=== PATIENT | male | born 1945 | race Caucasian/White ===

== ENCOUNTER 2019-12-30 08:35 | Day surgery (SDC) | payer MEDICARE, SELFPAY ==
[2019-12-25 13:58] VITALS: BMI 25.1
--- NOTE | 2019-12-26 12:40 | MHC.SHP ---
Pre-Procedural Eval Section A The patient is an INPATIENT: No The History & Physical has been completed within 30 days and I have reviewed it.: Yes Section B Chief Complaint: Cataract Left Eye Allergies: Allergies Allergy/AdvReac Type Severity Reaction Status Date / Time No Known Allergies Allergy Unverified 12/25/19 11:01 [No Known Allergies*] Plan Diagnosis/Plan: Unchanged Patient has been examined and remains a candidate for the planned procedure
[2019-12-30 09:18] VITALS: BP 138/79; PULSE 76; RESP 16; TEMP 36.3; O2SAT 94
--- NOTE | 2019-12-30 09:23 | P.CONAN_ITS ---
FORMERLY [facility], LATER [facility] Past Medical History Medical History (Updated 12/25/19 @ 13:54 by Cheryle Okeefe) Atrial fibrillation BPH (benign prostatic hyperplasia) GERD (gastroesophageal reflux disease) HTN (hypertension) Hypercholesterolemia Lung cancer On anticoagulant therapy On beta moncho at home Status post chemoradiation Surgical History Surgical History (Updated 12/25/19 @ 13:55 by Cheryle Okeefe) History of hernia surgery History of total right hip arthroplasty Social History Social History Are you a primary rn care transition to a significant other at home: No Do you presently have visiting nurse or other home services: No Smoking Status: Former smoker Smoking Quit Date: 23 yrs ago Use of substances other than those prescribed or required for medical reasons: No Have you been hit, kicked, punched, or otherwise hurt by someone within the past year? If so, by whom?: No Advance Directives: No Advance Directives Information Provided: No Advance Directives on File: No Recently lost weight without trying: No Meds Allergies Allergy/AdvReac Type Severity Reaction Status Date / Time No Known Allergies Allergy Unverified 12/25/19 11:01 [No Known Allergies*] Home Medications Medication Instructions Recorded Confirmed Type albuterol 90 mcg INHALATION Q4-6H PRN 12/25/19 12/25/19 History atorvastatin 20 mg PO QPM 12/25/19 12/25/19 History finasteride 5 mg PO DAILY 12/25/19 12/25/19 History metoprolol tartrate 25 mg PO BID 12/25/19 12/25/19 History omeprazole 20 mg PO DAILY 12/25/19 12/25/19 History rivaroxaban [Xarelto] 20 mg PO DAILY 12/25/19 12/25/19 History tamsulosin 0.4 mg PO DAILY 12/25/19 12/25/19 History Exam Exam Date and Time: December 30, 2019 0923 Height,Weight and Vital Signs: Height 5 ft 11 in Weight 81.647 kg Airway Mallampati Class: II TM Dist: >3cm Neck ROM: Full Heart: RRR Lungs: CTA BL Assessment and Plan Assessment Anesthesia Assessment: Anesthesia Plan Discussed and Chart Reviewed Final Anesthetic Review NPO: Yes ASA Class: III Final Preanesthetic Review: Meds/Allgs Chart Reviewed and Consent Obtained/Reviewed Patient Risk: Low Procedure Risk: Low Anesthetic Plan Anesthetic Plan: MAC: Disposition: Standard PACU
[2019-12-30] MEDS: Lactated Ringers 500 ML 50 ML IV (09:27)
[2019-12-30] MEDS: Tetracaine HCl/PF 0.5% Oph Sol 4 ML DROPS 1 DROP EYE-LEFT (09:28)
[2019-12-30] MEDS: Tropicamide 1 % Ophth Sol 3 ML BTL 1 DROP EYE-LEFT ×3 (09:29→09:37)
--- NOTE | 2019-12-30 10:57 | HO.PNOPHT ---
Ophthalmology Procedure Procedure Date of Service: 12/30/19 Ophthalmology Viscoelastic: Healon Duet Dual Pack Pro Ophthalmology Lenses: TECLIBORIO [id number] (24) Procedure Notes: PREOPERATIVE DIAGNOSIS: Decreased visual acuity left eye secondary to cataract POSTOPERATIVE DIAGNOSIS: Same PROCEDURE: Left cataract extraction with intraocular lens insertion SURGEON: Patrick Medina M.D. ANESTHESIA: Topical/MAC ESTIMATED BLOOD LOSS: None COMPLICATIONS: None After obtaining informed consent, the patient was brought to the operation room suite and placed in the supine position. After adequate sedation per anesthesia, topical drops of Tetracaine were given to the left eye. The eye was then prepped and draped in the usual sterile fashion. The operating room microscope was then positioned over the operative eye and a lid speculum placed. A paracentesis was created. Viscoelastic was then instilled into the anterior chamber. A three plane incision was then created temporally, utilizing a 2.85 mm keratome. Capsulotomy forceps were then utilized to create a circular tear capsulotomy. Hydrodissection and hydrodelineation were carried out until adequate mobilization of the nucleus occurred. Phacoemulsification was then utilized to remove the dense central nucleus followed by removal of the cortical material utilizing the automated aspiration irrigation unit. Viscoat elastic was instilled into the posterior capsular bag followed by placement of a posterior chamber intraocular lens without difficulty. The residual Viscoat elastic was then removed utilizing the automated IA machine. The wound was check and found to be watertight. The patient tolerated the procedure well and the lid speculum was removed. Intracameral injection of Vigamox 0.1 mL followed by a subtenon injection of Kenalog-40 0.2 mL were administered. The patient will be seen in the a.m.
[2019-12-30 11:02] VITALS: BP 131/88; PULSE 69; RESP 18; TEMP 36.1; O2SAT 96
== END 2019-12-30 11:25 | disposition home or self-care (01) ==
PROVIDERS: PCP Internal Medicine; Visit Provider Ophthalmology
PROC: (CPT 66985; principal; 2019-12-30 10:50)
DX: H25.12 Age-related nuclear cataract, left eye (principal); H54.7 Unspecified visual loss; I10 Essential (primary) hypertension; I48.91 Unspecified atrial fibrillation; K21.9 Gastro-esophageal reflux disease without esophagitis; Z79.01 Long term (current) use of anticoagulants; Z79.899 Other long term (current) drug therapy; Z96.651 Presence of right artificial knee joint; Z85.118 Personal history of other malignant neoplasm of bronchus and lung; Z92.21 Personal history of antineoplastic chemotherapy; Z92.3 Personal history of irradiation; Z87.891 Personal history of nicotine dependence
CPT/HCPCS: 66984; J2250; J3010; J3300; V2632

== ENCOUNTER 2020-03-23 06:26 | Day surgery (SDC) | payer MEDICARE, SELFPAY ==
[2020-03-17 10:06] VITALS: BMI 25.1
--- NOTE | 2020-03-19 15:15 | MHC.SHP ---
Pre-Procedural Eval Section A The patient is an INPATIENT: No The History & Physical has been completed within 30 days and I have reviewed it.: Yes Section B Chief Complaint: cataract right eye Allergies: Allergies Allergy/AdvReac Type Severity Reaction Status Date / Time No Known Allergies Allergy Unverified 12/25/19 11:01 [No Known Allergies*] Plan Diagnosis/Plan: Unchanged I have reviewed the history and physical and performed a pertinent physical examination on my patient. No changes have occurred unless specified.
--- NOTE | 2020-03-20 09:11 | P.CONAN_ITS ---
Documented by User: Mariya Clarke 03/20/20 09:13 HPI - Anesthesia Eval Consult details Narrative: 74yo M for Cataract Extraction IOL Insertion,right Left eye 12/2019 with MAC: Fent 25, Midaz 2 PCP cleared Xarelto for afib PMFSH Past Medical History Medical History Atrial fibrillation BPH (benign prostatic hyperplasia) GERD (gastroesophageal reflux disease) HTN (hypertension) Hypercholesterolemia Lung cancer On anticoagulant therapy On beta moncho at home Status post chemoradiation Surgical History Surgical History H/O colonoscopy History of bronchoscopy History of cataract extraction with lens replacement History of hernia surgery History of total right hip arthroplasty Social History Social History Smoking Status: Former smoker Smoked in Last 30 Days: No Smoking Quit Date: 1998 Use of substances other than those prescribed or required for medical reasons: No Have you been hit, kicked, punched, or otherwise hurt by someone within the past year? If so, by whom?: No Advance Directives Information Provided: No Meds Allergies Allergy/AdvReac Type Severity Reaction Status Date / Time No Known Allergies Allergy Verified 03/23/20 06:39 [No Known Allergies*] Home Medications Medication Instructions Recorded Confirmed Type atorvastatin 20 mg PO QPM 12/25/19 03/13/20 History finasteride 5 mg PO DAILY 12/25/19 03/13/20 History metoprolol tartrate 25 mg PO BID 12/25/19 03/13/20 History omeprazole 20 mg PO DAILY 12/25/19 03/23/20 History rivaroxaban [Xarelto] 20 mg PO DAILY 12/25/19 03/13/20 History tamsulosin 0.4 mg PO DAILY 12/25/19 03/13/20 History albuterol sulfate 2 puff INHALATION QID 03/13/20 03/13/20 History Exam Exam Date and Time: March 20, 2020910 Height,Weight and Vital Signs: Height 5 ft 11 in Weight 81.647 kg Assessment and Plan Assessment Anesthesia Assessment: Chart Reviewed Documented by User: Kamryn Robbins 03/23/20 07:22 [facility] Past Medical History Medical History Atrial fibrillation BPH (benign prostatic hyperplasia) GERD (gastroesophageal reflux disease) HTN (hypertension) Hypercholesterolemia Lung cancer On anticoagulant therapy On beta moncho at home Status post chemoradiation Surgical History Surgical History H/O colonoscopy History of bronchoscopy History of cataract extraction with lens replacement History of hernia surgery History of total right hip arthroplasty Social History Social History Smoking Status: Former smoker Smoked in Last 30 Days: No Smoking Quit Date: 1998 Use of substances other than those prescribed or required for medical reasons: No Have you been hit, kicked, punched, or otherwise hurt by someone within the past year? If so, by whom?: No Advance Directives Information Provided: No Meds Allergies Allergy/AdvReac Type Severity Reaction Status Date / Time No Known Allergies Allergy Verified 03/23/20 06:39 [No Known Allergies*] Home Medications Medication Instructions Recorded Confirmed Type atorvastatin 20 mg PO QPM 12/25/19 03/13/20 History finasteride 5 mg PO DAILY 12/25/19 03/13/20 History metoprolol tartrate 25 mg PO BID 12/25/19 03/13/20 History omeprazole 20 mg PO DAILY 12/25/19 03/23/20 History rivaroxaban [Xarelto] 20 mg PO DAILY 12/25/19 03/13/20 History tamsulosin 0.4 mg PO DAILY 12/25/19 03/13/20 History albuterol sulfate 2 puff INHALATION QID 03/13/20 03/13/20 History Exam Airway Mallampati Class: I TM Dist: >3cm Neck ROM: Full Loose/Missing/Broken Teeth: No Heart: RRR Lungs: CTA Assessment and Plan Assessment Anesthesia Assessment: Anesthesia Plan Discussed and Chart Reviewed Final Anesthetic Review NPO: Yes ASA Class: III Final Preanesthetic Review: Meds/Allgs Chart Reviewed, Consent Obtained/Reviewed and Anes Risks/Benef Reviewed Patient Risk: Intermediate Procedure Risk: Low Anesthetic Plan Anesthetic Plan: MAC: Disposition: Standard PACU
[2020-03-23 06:42] VITALS: BP 139/91; PULSE 89; RESP 16; TEMP 36.7; O2SAT 97
[2020-03-23] MEDS: Lactated Ringers 500 ML 50 ML IV (06:47)
[2020-03-23] MEDS: Tetracaine HCl/PF 0.5% Oph Sol 4 ML DROPS 1 DROP EYE-RIGHT (06:49)
[2020-03-23] MEDS: Tropicamide 1 % Ophth Sol 3 ML BTL 1 DROP EYE-RIGHT ×3 (06:50→07:02)
[2020-03-23] MEDS: Phenylephrine HCL 2.5% Oph SoL 2 ML BOTTLE 1 DROP EYE-RIGHT ×3 (06:53→07:12)
--- NOTE | 2020-03-23 08:19 | HO.PNOPHT ---
Ophthalmology Procedure Procedure Date of Service: 03/23/20 Ophthalmology Viscoelastic: Yo Salast Dual Pack Pro Ophthalmology Lenses: TECLIBORIO [id number] (24) Procedure Notes: PREOPERATIVE DIAGNOSIS: Decreased visual acuity right eye secondary to cataract POSTOPERATIVE DIAGNOSIS: Same PROCEDURE: Right cataract extraction with intraocular lens insertion SURGEON: Patrick Medina M.D. ANESTHESIA: Topical/MAC ESTIMATED BLOOD LOSS: None COMPLICATIONS: None After obtaining informed consent, the patient was brought to the operating room suite and placed in the supine position. After adequate sedation per anesthesia, topical drops of Tetracaine were given to the right eye. The eye was then prepped and draped in the usual sterile fashion. The operating room microscope was then positioned over the operative eye and a lid speculum placed. A paracentesis was created. Viscoelastic was then instilled into the anterior chamber. A three plane incision was then created temporally, utilizing a 2.85 mm keratome. Capsulotomy forceps were then utilized to create a circular tear capsulotomy. Hydrodissection and hydrodelineation were carried out until adequate mobilization of the nucleus occurred. Phacoemulsification was then utilized to remove the dense central nucleus followed by removal of the cortical material utilizing the automated aspiration irrigation unit. Viscoelastic was instilled into the posterior capsular bag followed by placement of a posterior chamber intraocular lens without difficulty. The residual Viscoelastic was then removed utilizing the automated IA machine. The wound was checked and found to be watertight. The patient tolerated the procedure well and the lid speculum was removed. Intracameral injection of Vigamox 0.1 mL followed by a subtenon injection of Kenalog-40 0.2 mL were administered. The patient will be seen in the a.m.
[2020-03-23 08:20] VITALS: BP 112/81; PULSE 90; RESP 16; TEMP 36.7; O2SAT 99
--- NOTE | 2020-03-23 08:29 | HO.POSTANES ---
Post Anesthesia Evaluation Post Anesthesia Evaluation Vital Signs: Vital Signs Temp Pulse Resp BP Pulse Ox 03/23/20 06:42 98.1 F 89 16 139/91 H 97 Anesthesia: Monitored Mental Status: Awake Pain Control: Satisfactory Nausea/Vomiting: None Hydration: Adequate Anesthesia-Related Issues: No Anes. Related Issues
== END 2020-03-23 09:00 | disposition home or self-care (01) ==
PROVIDERS: PCP Internal Medicine; Visit Provider Ophthalmology
PROC: (CPT 66985; principal; 2020-03-23 07:50)
DX: H25.11 Age-related nuclear cataract, right eye (principal); I10 Essential (primary) hypertension; I48.91 Unspecified atrial fibrillation; Z79.01 Long term (current) use of anticoagulants; Z79.899 Other long term (current) drug therapy
CPT/HCPCS: 66984; J2250; J3010; J3300; V2632